=== PATIENT | male | born 1945 | race Caucasian/White ===

== ENCOUNTER 2017-02-02 14:18 | Emergency (ER) | payer SELFPAY ==
[~2017-02-02] VITALS: Ht 162.6 cm; Wt 60.3 kg
[2017-02-02 14:23] VITALS: BP 190/105
--- NOTE | 2017-02-02 14:30 | NUR ---
71/M BIB SELF c/o right foot pain x yesterday s/p stepped on a nail last tetanus shot 2 yrs ago. PT DENIES N/V/D; SKIN IS PINK/WARM/DRY; AAOX4 WITH EVEN AND STEADY GAIT; LUNGS CLEAR BL; HR EVEN AND REGULAR; PT DENIES ANY FEVER, CP, SOB, OR COUGH AT THIS TIME; PATIENT STATES PAIN OF 9/10 AT THIS TIME; BP185/109;NOTIFIED MD BONE. PATIENT POSITIONED FOR COMFORT; HOB ELEVATED; BEDRAILS UP X2; BED DOWN. ER MD MADE AWARE OF PT STATUS.
--- NOTE | 2017-02-02 14:45 | NUR ---
X RAY AT BEDSIDE
[2017-02-02] MEDS ORDERED: KETOROLAC 60 MG/2 ML VIAL IM ONE (15:20)
[2017-02-02 15:45] VITALS: BP 173/101
--- NOTE | 2017-02-02 15:45 | NUR ---
Patient discharged with BP173/101;PT DENIES HEADACHE OR DIZZINESS AT THIS TIME; ER MD DR ZURITA NOTIFED;MD AWARE. Written and verbal after care instructions given and explained. Patient alert, oriented and verbalized understanding of instructions. Ambulatory with steady gait. All questions addressed prior to discharge. ID band removed. Patient advised to follow up with PMD. Rx of MOTRIN given. Patient educated on indication of medication including possible reaction and side effects. Opportunity to ask questions provided and answered.
== END 2017-02-02 15:45 | disposition home or self-care (01) ==
LOC: MED 14:18
DX: S91.331A Puncture wound without foreign body, right foot, initial encounter (principal); W22.8XXA Striking against or struck by other objects, initial encounter; Y93.89 Activity, other specified; Y92.89 Other specified places as the place of occurrence of the external cause; Y99.8 Other external cause status
CPT/HCPCS: 73630; 96372; 99284; J1885; Q0092

== ENCOUNTER 2019-04-05 12:05 | Emergency (ER) | payer SELFPAY ==
[~2019-04-05] VITALS: Ht 162.6 cm; Wt 68.0 kg
[2019-04-05 12:14] VITALS: BP 184/108
--- NOTE | 2019-04-05 12:14 | NUR ---
Patient ambulated to bed 7 with family. RN evaluating patient at bedside.
--- NOTE | 2019-04-05 12:21 | NUR ---
PATIENT PRESENTS TO ED WITH C/O RT FOOT PAIN X 1 MONTH AFTER BUMPING HIS FOOT ON A WALL. SKIN INTACT. NO OBVIOUS DEFORMITY. NOTED WITH EVEN AND STEADY GAIT; PATIENT STATES PAIN OF 10/10 AT THIS TIME; PATIENT POSITIONED FOR COMFORT; BEDRAILS UP X1; BED DOWN. ER MD TO EVALUATE PT. [facility]-STROKE RX- MELOXICAM NKA
--- NOTE | 2019-04-05 12:26 | NUR ---
Dr. Flores evaluating patient at bedside.
[2019-04-05] MEDS ORDERED: KETOROLAC 60 MG/2 ML VIAL IM ONE (12:40)
--- NOTE | 2019-04-05 13:31 | NUR ---
PT AMB TO [facility] W/O ASST. GAIT-WNL NO LIMPING NOTED.
[2019-04-05 13:51] VITALS: BP 182/98
== END 2019-04-05 13:52 | disposition home or self-care (01) ==
LOC: MED 12:05
DX: S90.31XA Contusion of right foot, initial encounter (principal); Z86.73 Personal history of transient ischemic attack (TIA), and cerebral infarction without residual deficits; W22.8XXA Striking against or struck by other objects, initial encounter; Y93.89 Activity, other specified; Y92.89 Other specified places as the place of occurrence of the external cause; Y99.8 Other external cause status
CPT/HCPCS: 36415; 73630; 84550; 96372; 99284; J1885; Q0092